=== PATIENT | female | born 1945 | race Caucasian/White ===

== ENCOUNTER 2023-10-10 09:23 | Emergency (ER) | payer OTHER ==
[2023-10-10 09:57] VITALS: BMI 31.8
[2023-10-10] MEDS ORDERED: ALBUTEROL SO4 2.5/IPRATROPIUM 0.5 INH SOL 3 ML VIAL.NEB. NEB ONE (10:23)
[2023-10-10] MEDS ORDERED: methylPREDNISolone NA SUCC 125 MG/2 ML VIAL ONE (10:23)
[2023-10-10 10:29] LABS: BASO % 0.5 % (0-2.0); HEMATOCRIT 29.4 % (32.4-45.2); HEMOGLOBIN 9.6 GM/dL (10.7-15.3); LYMPH % 16.2 % (8-40); MCH 28.3 pg (25.7-33.7); MCHC 32.6 g/dl (32.0-36.0); MEAN CELL VOLUME 86.9 fl (80-96); MEAN PLT VOLUME 9.7 fl (7.5-11.1); MONO % 9.3 % (3.8-10.2); PLATELET COUNT 283 10^3/uL (134-434); RBC 3.38 M/mm3 (3.60-5.2); RDW 17.2 % (11.6-15.6); WHITE BLOOD COUNT 7.1 K/mm3 (4.0-10.0)
[2023-10-10 10:41] LABS: ACTIVATED PTT 32.7 SECONDS (25.2-36.5); INR 1.33 (0.83-1.09); PROTHROMBIN TIME (PATIENT) 15.4 SEC (9.7-13.0)
[2023-10-10] MEDS: methylPREDNISolone NA SUCC 125 MG/2 ML VIAL IVPB ONE (10:49)
[2023-10-10] MEDS: ALBUTEROL SO4 2.5/IPRATROPIUM 0.5 INH SOL 3 ML VIAL.NEB. NEB ONE (10:52)
[2023-10-10] MEDS: ALBUTEROL SO4 2.5/IPRATROPIUM 0.5 INH SOL 3 ML VIAL.NEB. NEB SCH (10:52)
[2023-10-10 11:06] LABS: POTASSIUM 5.4 mmol/L (3.5-5.1); SODIUM 139 mmol/L (136-145)
[2023-10-10 11:08] LABS: ALBUMIN 2.7 g/dl (3.4-5.0); CALCIUM 8.3 mg/dL (8.5-10.1); GLUCOSE,RANDOM 109 mg/dL (74-106)
[2023-10-10 11:09] LABS: CO2 25 mmol/L (21-32)
[2023-10-10 11:11] LABS: SGOT/AST 11 U/L (15-37)
[2023-10-10 11:12] LABS: SGPT/ALT < 6 U/L (13-61)
[2023-10-10 11:13] LABS: BILIRUBIN,TOTAL 0.3 mg/dL (0.2-1); TOT PROT 6.2 g/dl (6.4-8.2)
[2023-10-10 11:14] LABS: ALK PHOS 100 U/L (45-117)
[2023-10-10 11:18] LABS: ANION GAP 3 mmol/L (4-13); BLOOD UREA NITROGEN 41.4 mg/dL (7-18); CHLORIDE 112 mmol/L (98-107); N-TERMINAL BNP 3841.9 pg/ml (5-450)
[2023-10-10 12:50] LABS: EPI CELLS >36 /uL (0-25.1); HYALINE CASTS 1 /uL (0-3.1); PH,URINE 5.5 (5.0-8.0); URINE APPEARANCE CLEAR; URINE BACTERIA 1224 /uL (0-1359); URINE BILIRUBIN NEGATIVE (NEGATIVE); URINE COLOR YELLOW; URINE GLUCOSE (UA) NEGATIVE (NEGATIVE); URINE KETONE NEGATIVE (NEGATIVE); URINE LEUK ESTERASE NEGATIVE (NEGATIVE); URINE NITRITE NEGATIVE (NEGATIVE); URINE PROTEIN 2+ (NEGATIVE); URINE RBC 22 /uL (0-23.9); URINE UROBILINOGEN 0.2 mg/dL (0.2-1.0); URINE WBC 23 /uL (0-25.8)
[2023-10-10] MEDS: SODIUM CHLORIDE 1,000 ML IV STA (13:25)
[2023-10-10] MEDS ORDERED: ACETAMINOPHEN INJECTION 100 ML IVPB ONE (13:42)
[2023-10-10] MEDS: ACETAMINOPHEN 1000 MG/100 ML BAG IVPB ONE (14:05)
[2023-10-10] MEDS ORDERED: NICOTINE 21 MG/24 HOURS TOPICAL PATCH ONE (19:43)
[2023-10-10] MEDS: NICOTINE 21 MG/24 HOURS TOPICAL PATCH TD ONE (19:47)
[2023-10-10] MEDS: NICOTINE 7 MG/24 HOURS TOPICAL PATCH TD ONE (19:47)
[2023-10-10] MEDS: morphine CARPU-JECT 4 MG/1 ML DISP.SYRIN IVPUSH ONE (19:59)
[2023-10-10] MEDS ORDERED: CEFTRIAXONE 1 GM/50 ML BAG ONE (20:07)
[2023-10-10] MEDS: CEFTRIAXONE 1 GM in DEXTROSE 5%-WATER - 100 ML IVPB ONE (20:10)
[2023-10-10 20:16] VITALS: BP 160/60; PULSE 78; RESP 14; TEMP 98.1
== END 2023-10-10 20:21 | disposition short-term general hospital (02) ==
LOC: JER 09:23
PROC: 3E03329 Introduction of Other Anti-infective into Peripheral Vein, Percutaneous Approach (ICD-10-PCS; principal; 2023-10-10)
PROC: 3E033NZ Introduction of Analgesics, Hypnotics, Sedatives into Peripheral Vein, Percutaneous Approach (ICD-10-PCS; 2023-10-10)
PROC: 3E033GC Introduction of Other Therapeutic Substance into Peripheral Vein, Percutaneous Approach (ICD-10-PCS; 2023-10-10)
PROC: 3E033GC Introduction of Other Therapeutic Substance into Peripheral Vein, Percutaneous Approach (ICD-10-PCS; 2023-10-10)
PROC: 3E0337Z Introduction of Electrolytic and Water Balance Substance into Peripheral Vein, Percutaneous Approach (ICD-10-PCS; 2023-10-10)
PROC: 3E0F7GC Introduction of Other Therapeutic Substance into Respiratory Tract, Via Natural or Artificial Opening (ICD-10-PCS; 2023-10-10)
DX: T82.9XXA Unspecified complication of cardiac and vascular prosthetic device, implant and graft, initial encounter (principal); R26.81 Unsteadiness on feet; R06.02 Shortness of breath; R05.9 Cough, unspecified; R29.898 Other symptoms and signs involving the musculoskeletal system; W19.XXXD Unspecified fall, subsequent encounter; Z20.822 Contact with and (suspected) exposure to COVID-19
CPT/HCPCS: 0241U-QW; 36415; 70450-TC; 71045-TC-FY; 72170-TC-FY; 73610-TC-RT-FY; 73630-TC-RT-FY; 80053; 81003; 83605; 83690; 83880; 84484; 85025; 85610; 85730; 86140; 87086; 93005; 93010; 94640; 96361; 96365; 96375; 99285-25; J0131